=== PATIENT | male | born 2000 | race Caucasian/White ===

== ENCOUNTER → 2023-04-26 14:45 | Outpatient (REF) | payer BC, SELFPAY | LOC: HWRCS 14:45 | PROVIDERS: ATTENDING PHYSICIAN Family Medicine | DX: R01.1 Cardiac murmur, unspecified (principal) | CPT/HCPCS: 93306 ==

== ENCOUNTER 2023-07-29 13:36 | Emergency (ER) | payer BC, SELFPAY ==
[2023-07-29 13:42] VITALS: BP 135/81
[2023-07-29 14:05] LABS: % Basophils 0.5 % (0-2); % Eosinophils 0.7 % (0-6); % Immature Granulocytes 0.3 % (0-0.5); % Monocytes 7.6 % (1.7-9.3); % Neutrophils 68.9 % (42.2-75.2); Absolute Eosinophils 0.1 10^3/uL (0-0.7); Absolute Lymphocytes 1.9 10^3/uL (1.2-3.4); Absolute Monocytes 0.7 10^3/uL (0.1-0.6); Hematocrit 47.2 % (39.0-52.0); Hemoglobin 15.9 g/dL (13.0-18.0); Mean Corp Hgb Conc. 33.7 g/dL (33.0-37.0); Mean Corpuscular Hgb 30.3 pg (27.0-31.0); Mean Corpuscular Volume 90.1 fL (80.0-94.0); Mean Platelet Volume 8.7 fL (7.4-10.4); Nucleated Red Blood Cells % 0 % (-); Platelet Count 281 10^3/uL (130-400); Red Blood Cell Count 5.24 10^6/uL (4.70-6.10); White Blood Cell Count 8.6 10^3/uL (4.8-10.8)
[2023-07-29 15:00] LABS: ALT (SGPT) 20 U/L (0-50); AST (SGOT) 24 U/L (17-59); Albumin 4.8 g/dl (3.5-5.0); Alkaline Phosphatase 67 U/L (38-126); Blood Urea Nitrogen 15 mg/dl (9-20); Calcium 9.8 mg/dl (8.4-10.2); Carbon Dioxide 28 mmol/L (22-30); Chloride 101 mmol/L (98-107); Glucose 106 mg/dl (70-99); Potassium 3.7 mmol/L (3.5-5.1); Sodium 139 mmol/L (135-145); Total Bilirubin 0.7 mg/dl (0.2-1.3); Total Protein 7.4 g/dl (6.3-8.2); eGFR > 60.00
[2023-07-29 17:08] VITALS: BP 131/72
[2023-07-29 18:08] VITALS: BP 127/70
[2023-07-29 18:44] VITALS: BP 114/69; BP 120/72; BP 127/78; PULSE 63; PULSE 64; PULSE 73
[2023-07-29 18:51] LABS: Urine Albumin Negative (Neg - Trace); Urine Bilirubin Negative (Negative); Urine Character Clear (Clear); Urine Color Straw; Urine Glucose Negative (Negative); Urine Ketone Negative (Negative); Urine Leukocyte Negative (Negative); Urine Nitrite Negative (Negative); Urine Occult Blood Negative (Negative); Urine Urobilinogen Negative (Neg - 1+)
--- NOTE | 2023-07-29 19:33 | ED.GENMED ---
History of Present Illness
General
Chief Complaint: Fainting/Passed Out
Source: patient
Exam Limitations: none
Time Seen by Provider: 07/29/23 17:17
Nursing documentation reviewed up to this point in time: agreed with
Travel History
Have you had any contact with someone who has COVID-19?: No
Do you have any symptoms of coronavirus? Fever > 100 degrees, chills, cough, shortness of breath, sore throat, loss of taste or smell, muscle aches, or headache?: No
History of Present Illness
History of Present Illness:
23 y/o M with no sig pmh
here after syncope thi smorning
pt says around 10 am he went to the bathroom, did have some what of a longer time sitting on the toiklet, not necessarily straining but jsut a little longer and slower and while sitting he felt a pain 6/10 in L inguinal region, lasted a few minutes
and then mostly fully resolved
minimal residual 2/10 discomfort stlil present since but no lump and not really tender
he didn't notice anythign wrong with stool
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
then suddenly while standing he felt dizzy and then woke up on the ground
he has never passed out before
didn't have any palpitations, chest pain, shortness of breath, tunnel vision, headache,
had echo for possible murmur a few months ago here and was neg
this was arranged by PCP
Review of Systems
Review of Systems
Allergies reviewed?: Yes
All Other Systems: Not applicable
Phy Exam
Physical Exam
Physical Exam:
GENERAL: Alert , in no apparent distress
EYE: pupils equal and reactive
NECK: Supple
ENT: o/p clr, mmm.
CARDIAC: Regular rate and rhythm .no murmur
LUNGS: Clear breath sounds bilaterally, no acute respiratory distress, no wheezes/rales/rhonchi
ABDOMEN: Soft, without focal tenderness, no r/g, no cvat, normal bowel sounds
: normal inspection
normal testicles
nontender
no hernia appreciated
mild left inguinal tendenress
no mass
no DAVID
no discharge
NEUROLOGICAL: Alert and oriented, no focal neuro deficits
SKIN: Warm and dry, skin intact.
MUSCULOSKELETAL: No edema, well perfused. neg juliette's sign
PSYCH: Normal and appropriate interaction.
Course
Orders/Labs/Results
Orders:
Orders
07/29/23 13:46
Electrocardiogram (*1) Urgent
Reason for Study: Chest Pain
EKG- Treatment ONCE
07/29/23 13:59
Complete Blood Count/With Diff Urgent
Comprehensive Metabolic Panel Urgent
07/29/23 18:05
Scrotum US [US Scrotum] Urgent
Comment:
Reason For Exam: left inguinal pain after straining, eval hernia
US Groin (Imaging Only) LT Urgent
Comment:
Reason For Exam: left inguinal pain
07/29/23 18:09
Orthostatic VS- Treatment ONCE
07/29/23 18:43
Urinalysis Reflex To Culture Urgent
Date Specimen was Collected: 07/29/23
Time Specimen was Collected: 18:27
Abnormal Lab Results
07/29/23
13:59
Absolute Monos (auto) 0.7 H 10^3/uL
(0.1-0.6)
Glucose 106 H mg/dl
(70-99)
07/29/23 13:59
07/29/23 13:59
Vital Signs
Initial and Last Documented VS:
Initial Vital Signs
Temp Pulse Resp BP Pulse Ox
97.6 F 78 20 135/81 100
07/29/23 13:42 07/29/23 13:42 07/29/23 13:42 07/29/23 13:42 07/29/23 13:42
Last Documented Vital Signs
Temp Pulse Resp BP Pulse Ox
97.6 F 71 18 127/70 99
07/29/23 13:42 07/29/23 18:08 07/29/23 18:08 07/29/23 18:08 07/29/23 18:08
MDM/Problems Addressed
Differential Diagnosis Includes:
vasovagal syncope, dehydation, dysrhythmia, hernia, ocnstipation, kidney stone
MDM/Problems Addressed:
23 y/o M healthy
some degree of anxiety
had pain while moving bowels today, was straining slightly and felt L inguinal pain
was feeling it not as severely an hour later and got lightheaded and passed out, woke up on the ground
hit head but no headache, no vomiting
no neck pain
acting himself
pain is miniaml in L groin
had outpatient echo washich wa neg
no sudden cardiac in the family
vitals normal
ekg normal
pt apears anxious but otherwise well
no appreciated hernia
no symptmoms otherwise
normal labs, neg ua, US no hernia small hydrocele and small epidydimal head cyst
scotal support nsaids
f/u uro prn but these are unliekly to be the cause of ht epain, likely MSK
d/w ed attending agree with d/c home
*Critical Care Note
Total Time (30-74mins, 75-104mins- exclusive of procedures): Not Applicable
ED Attending Note
-
Portions of this chart may have been created with voice recognition software.� Occasional wrong word or��sound alike� substitutions may have occurred due to the inherent limitations of voice recognition software.
Discharge Plan
Departure
Patient Disposition: Home (Routine Discharge)
Date of Disposition: 07/29/23
Time of Disposition: 19:43
Patient with high blood pressure during this ER visit?: No
Condition: Fair
Covid-19: Not Applicable
Discharge Problem:
Syncope, Groin strain
Instructions: Syncope (Fainting) (DC), Groin Strain (DC)
Referrals:
Anjana Urbina, [Family Provider] -
Josiah Antunez MD [Active] - Follow up in 1 week (cardiology)
Luan Batista MD [Active] - Follow up in 1 week (urology)
Activity Restrictions/Additional Instructions:
Your blood work, urine and ultrasound appear to be within normal limits. There is a very small cyst in your left epididymis which is not unusual, these are oftentimes idiopathic and not caused by anything. As long as it small and does not become
larger or painful there is nothing to do for it but you are welcome to follow-up with a urologist.
For now just because you have a little bit of pain you should wear tighter supporting underwear for the next couple days and you can take ibuprofen 600 mg with food 2-3 times a day for the next 2 to 3 days as needed. Make sure you try not to strain
when you have a bowel movement. If you need to use a stool softener do that. Return for any concerns. Regarding your passing out episode it is unclear what caused this but you had a normal echocardiogram in April and a normal EKG here. You
are also have normal vital signs. At this point there is likely no further workup that is needed but if you would like to reach out to cardiology you can call for an appointment. I left the number on the paperwork.
Interventions
Interventions:
*Risk Screen - Suicide Last Done: 07/29/23 13:42
*General Assessment Last Done: 07/29/23 13:42
*Neglect/Abuse Screening Last Done: 07/29/23 13:42
ED- Fall Risk Assessment Last Done: 07/29/23 17:07
*Nursing Disposition Last Done: 07/29/23 20:26
ED- Cardiac Assessment Last Done: 07/29/23 17:07
ED- Neurological Assessment Last Done: 07/29/23 17:07
Discharge Date and Time
Discharge Date/Time: 07/29/23 20:26
Print Language: ALGERIAN
== END 2023-07-29 20:26 | disposition home or self-care (01) ==
LOC: EMR 13:36
PROVIDERS: Emergency Medicine; Physician Assistant; EMERGENCY PHYSICIAN Emergency Medicine; FAMILY PHYSICIAN Family Medicine
DX: R55 Syncope and collapse (principal); S39.011A Strain of muscle, fascia and tendon of abdomen, initial encounter; N43.3 Hydrocele, unspecified; N50.3 Cyst of epididymis; W19.XXXA Unspecified fall, initial encounter; Y92.000 Kitchen of unspecified non-institutional (private) residence as the place of occurrence of the external cause; M41.9 Scoliosis, unspecified
CPT/HCPCS: 99284; 76870; 76882; 80053; 81003; 85025; 93005; 93976

== ENCOUNTER → 2023-10-23 09:28 | Outpatient (REF) | payer BC, SELFPAY | LOC: RCS 09:28 | PROVIDERS: ATTENDING PHYSICIAN Family Medicine | DX: R55 Syncope and collapse (principal) | CPT/HCPCS: 93225; 93226 ==

== ENCOUNTER → 2024-04-03 18:42 | Outpatient (REF) | payer BC, SELFPAY | LOC: MRI 18:42 | PROVIDERS: ATTENDING PHYSICIAN Specialist; FAMILY PHYSICIAN Family Medicine | DX: R55 Syncope and collapse (principal) | CPT/HCPCS: 70553 ==

== ENCOUNTER → 2024-07-01 17:26 | Outpatient (REF) | payer BC, SELFPAY | LOC: RAD 17:26 | PROVIDERS: ATTENDING PHYSICIAN Nurse Practitioner Primary Care | DX: R10.32 Left lower quadrant pain (principal); S76.212A Strain of adductor muscle, fascia and tendon of left thigh, initial encounter | CPT/HCPCS: 74177; Q9967 ==

== ENCOUNTER → 2024-11-04 12:01 | Outpatient (REF) | payer BC, SELFPAY | LOC: PAVMRI 12:01 | PROVIDERS: ATTENDING PHYSICIAN Student in an Organized Health Care Education/Training Program; FAMILY PHYSICIAN Nurse Practitioner Primary Care | DX: S76.212A Strain of adductor muscle, fascia and tendon of left thigh, initial encounter (principal); R10.32 Left lower quadrant pain | CPT/HCPCS: 72195 ==